=== PATIENT | female | born 1960 | race Caucasian/White ===

== ENCOUNTER 2019-10-13 13:15 | Emergency (ER) | payer OTHER, SELFPAY ==
--- NOTE | ~2019-10-13 | XR_ITS ---
XR sacrum coccyx min 2V 10/13/2019 13:55 Indication: Tailbone pain after recent fall Procedure: 3 views sacrum/coccyx Comparison: No prior studies for comparison. Findings: There is cortical irregularity involving the coccyx best seen on lateral view. There is deg enerative spondylosis at L5-S1. Impression: 1: Cortical irregularity of the coccyx seen on lateral view, consistent with age-indeterminate fractu re. Reviewed, dictated and finalized at location A. Impression: 1: Cortical irregularity of the coccyx seen on lateral view, consistent with ag e-indeterminate fracture.
[2019-10-13 13:25] VITALS: BP 127/85; PULSE 95; RESP 16; TEMP 37.1; O2SAT 99
--- NOTE | 2019-10-13 13:44 | ED.BACK ---
HPI - Back Pain/Injury General Chief Complaint: Back Pain/Injury Stated Complaint: injury Time Seen by Provider: 10/13/19 13:44 Source: patient and RN notes reviewed History of Present Illness HPI Narrative: Patient is a 59-year-old female who presents the urgent care with complaints of back pain after a fall 2 days ago. Patient states that she fell backwards landing on her butt. Patient states that she has not used anything [id number] for her pain. States it is difficult to walk, sit, stand. Denies of any other injuries from the fall. No other acute complaints. No acute distress noted. Patient read the plan of care. Related Data Home Medications Medication Instructions Recorded Confirmed duloxetine mg PO 10/13/19 simvastatin mg 10/13/19 warfarin 10/13/19 Allergies Allergy/AdvReac Type Severity Reaction Status Date / Time PCN Allergy Unknown Unknown Uncoded 10/13/19 13:37 Review of Systems Review of Systems: Narrative: CONSTITUTIONAL: Denies fever, chills, or sweats. EYES: Denies visual changes, redness, or discharge. ENT: Denies rhinorrhea, congestion, sore throat, or otalgia. CARDIOVASCULAR: Denies chest pain, palpitations, or edema. RESPIRATORY: Denies cough or dyspnea. GASTROINTESTINAL: Denies abdominal pain, nausea, vomiting, or diarrhea. GENITOURINARY: Denies dysuria or hematuria. SKIN: Denies rash or itching. MUSCULOSKELETAL: Reports of buttock/tailbone pain NEUROLOGIC: Denies headache, numbness, or weakness. All other systems reviewed are negative, except as documented in HPI. PMFSH Comments At the time of my signature, I reviewed and agree with the nursing past medical, surgical, social, and family history. There is no relevant family history pertinent to the patient complaint. Exam Narrative: Exam Narrative: GENERAL: This is a well-nourished, well-developed patient, in no apparent distress. HEAD: normocephalic, atraumatic. EYES: PERRL. Sclera clear/white. Vision is grossly intact. EARS: External ears normal NOSE: External nose normal with no obvious nasal discharge, nares without redness, no rhinorrhea. THROAT: Mucous membranes moist. NECK: Neck supple SKIN: warm, intact with no suspicious lesions or rash, good texture and turgor. NEURO: awake, alert, and oriented to person, place and time. There were no obvious focal neurologic abnormalities. EXTREMITIES: No clubbing, cyanosis, or edema. BACK: Moderate to mild tenderness to the coccyx region without any crepitus, edema, ecchymosis Course Vital Signs Vital signs: Vital Signs Temperature 98.8 F 10/13/19 13:25 Pulse Rate 95 10/13/19 13:25 Respiratory Rate 16 10/13/19 13:25 Blood Pressure 127/85 10/13/19 13:25 Pulse Oximetry 99 10/13/19 13:25 Temperature 98.8 F 10/13/19 13:25 Pulse Rate 95 10/13/19 13:25 Respiratory Rate 16 10/13/19 13:25 Blood Pressure 127/85 10/13/19 13:25 Pulse Oximetry 99 10/13/19 13:25 Reviewed MDM - Back Pain/Injury MDM Narrative Medical decision making narrative: Reviewed x-ray results with the patient. She is aware that there is irregularity of the coccyx on the x-ray. Radiologist's reading the x-ray is age indeterminant . However, due to recent fall it is likely that the fracture is new. Advised the patient to use a blowup ring to sit on for comfort and to remove pressure from the coccyx. May use an inflatable swim donut ring. Use tramadol as needed for pain. Try to avoid excessive walking, stairs, bending at the waist, lifting. Follow-up with your PCP within 2 to 5 days if her worsening symptoms or failure to improve. Differential Diagnosis Differential diagnosis: Likely lumbar radiculopathy, sciatica and strain of lumbar region Imaging Data Radiologist's impression: [facility] [address] [place] [address] XRay Report Signed Patient: Kaitlynn Pinedo : 1960#: [id number] Age/Sex: 59 / FAcct:[id number] Loc: E
== END 2019-10-13 14:23 | disposition home or self-care (01) ==
PROVIDERS: Emergency Provider Nurse Practitioner Family
DX: S32.2XXA Fracture of coccyx, initial encounter for closed fracture (principal); W19.XXXA Unspecified fall, initial encounter; E78.00 Pure hypercholesterolemia, unspecified
CPT/HCPCS: 72220; 99213; G0463

== ENCOUNTER 2019-11-14 12:12 | Outpatient (CLI) | payer OTHER, SELFPAY ==
--- NOTE | ~2019-11-14 | DEXA_ITS ---
Bone Density Report Name: Kaitlynn Pinedo Age: 59 Sex: Female Ethnicity: White Date of : 1960 Indication: osteopenia; prior fracture; hysterectomy; postmenopausal Referring Provider: MELONY AMIN Study: Bone densitometry was performed. Exam Date: November 14, 2019 Accession number: [id number] Bone Density: Region BMD T-score Z-score Classification AP Spine (L1-L4) 0.825 -2.0 -0.6 Osteopenia Femoral Neck (Left) 0.589 -2.3 -1.1 Osteopenia Total Hip (Left) 0.789 -1.3 -0.3 Osteopenia Femoral Neck (Right) 0.572 -2.5 -1.2 Osteoporosis Total Hip (Right) 0.770 -1.4 -0.5 Osteopenia Total Hip Mean 0.780 -1.4 -0.4 Osteopenia World Health Organization criteria for BMD impression classify patients as: Normal (T-score at or above -1.0), Osteopenia (T-score between -1.0 and -2.5), or Osteoporosis (T-score at or below -2.5). 10-year Fracture Risk: FRAX not reported because: Some T-score for Spine Total or Hip Total or Femoral Neck at or below -2.5 Prior hip or vertebral fracture Previous Exams: Region Exam Age BMD T-score BMD Change BMD Change Date g/cm2 vs Baseline vs Previous AP Spine(L1-L4) 11/14/2019 59 0.825 -2.0 -0.001 -0.001 04/13/2018 58 0.827 -2.0 Total Hip(Left) 11/14/2019 59 0.789 -1.3 0.012 0.012 04/13/2018 58 0.777 -1.4 Total Hip(Right) 11/14/2019 59 0.770 -1.4 0.018 0.018 04/13/2018 58 0.752 -1.6 *Denotes significance at 95% confidence level, LSC for AP Spine = 0.022 g/cm2, LSC for Total Hip = 0.027 g/cm2 Clinical Information Provided by Patient: Have had a previous hip or vertebral fracture Has had a low trauma fracture Smokes Has used the following medications: Vitamin D, Calcium, cumidan Has the following medical conditions: Hysterectomy Patient maximum height was 62.5 Menopause Age: 27 Drinks caffeinated beverages Onset of menses at age 16 Number of children 2 Impression: The patient has established osteoporosis, based on the Right Femoral Neck T-score and the existence of a prior fracture. The patient has risk factors, including: smoking, previous fracture. No significant bone loss was observed. Discussion: HIGH RISK OF FRACTURE. BONE DENSITY IS UNDESIRABLY LOW AT ONE OR MORE SKELETAL SITES, CONSISTENT WITH POSTMENOPAUSAL OSTEOPOROSIS. This patient's lowest T-score, in a patient who has previously fractured, meets the World Health Organization's (WHO) criteria for s
== END 2019-11-14 12:13 ==
PROVIDERS: PCP Internal Medicine; Visit Provider Orthopaedic Surgery
DX: M25.551 Pain in right hip (principal); M25.552 Pain in left hip; M85.89 Other specified disorders of bone density and structure, multiple sites; M81.0 Age-related osteoporosis without current pathological fracture
CPT/HCPCS: 77080

== ENCOUNTER 2020-01-02 14:47 | Outpatient (CLI) | payer OTHER, SELFPAY ==
--- NOTE | ~2020-01-02 | XR_ITS ---
XR finger 3rd RT min 2V DATE: 01/02/2020 15:17 INDICATION: Nodule of finger. Inflammatory arthritis. TECHNIQUE: 4 views COMPARISON: 01/05/2018 right hand FINDINGS: No fracture or dislocation, periosteal reaction or bone destruction. No radiopaque soft tis joellen foreign body or subcutaneous emphysema. No erosive change is identified. There is mild narrowing at the interphalangeal joints. IMPRESSION: Mild osteoarthritis at the interphalangeal joints Reviewed, dictated and finalized at location A.
== END 2020-01-02 14:48 | disposition home or self-care (01) ==
PROVIDERS: PCP Internal Medicine
DX: M19.041 Primary osteoarthritis, right hand (principal); R22.31 Localized swelling, mass and lump, right upper limb
CPT/HCPCS: 73140

== ENCOUNTER 2020-11-05 13:43 | Emergency (ER) | payer OTHER, SELFPAY ==
--- NOTE | ~2020-11-05 | XR_ITS ---
EXAMINATION: XR foot LT min 3V DATE: 11/05/2020 15:25 INDICATION: Left foot pain TECHNIQUE: Dorsoplantar, two oblique and lateral views of the left foot were obtained. COMPARISON: 12/21/2006 FINDINGS: 40 degrees hallux valgus. Age-indeterminate dorsal subluxation, likely dislocation at the second meta tarsophalangeal joint which is new since the prior study. No fractures. Mild polyarticular osteoarthr itis involving the majority of the moderate-sized plantar calcaneal spur. Mild soft tissue swelling o edgard the dorsum of the mid and hindfoot. Tarsal metatarsal, metatarsophalangeal and interphalangeal karen ints. IMPRESSION: 1. Age-indeterminate dorsal subluxation, likely dislocation at the second metatarsophalangeal joint. 2. Moderate hallux valgus. 3. Mild polyarticular osteoarthritis in the fore and midfoot. Reviewed, dictated and finalized at location A. IMPRESSION: 1. Age-indeterminate dorsal subluxation, likely dislocation at the second metat arsophalangeal joint. 2. Moderate hallux valgus. 3. Mild polyarticular osteoarthritis in the fore and midfoot.
[2020-11-05 13:53] VITALS: BP 131/71; PULSE 102; RESP 16; TEMP 36.9; O2SAT 100
--- NOTE | 2020-11-05 14:26 | ED.LOWEXIN ---
HPI - Extremity Injury (Lower) General Chief Complaint: Extremity Injury, Lower <Stacy Sharma CNP - Last Filed: 11/05/20 17:42> Stated Complaint: Left Foot Pain <Stacy Sharma CNP - Last Filed: 11/05/20 17:42> Time Seen by Provider: 11/05/20 14:26 <Stacy Sharma CNP - Last Filed: 11/05/20 17:42> Source: patient <Stacy Sharma CNP - Last Filed: 11/05/20 17:42> Mode of arrival: ambulatory <Stacy Sharma CNP - Last Filed: 11/05/20 17:42> Limitations: no limitations <Stacy Sharma CNP - Last Filed: 11/05/20 17:42> History of Present Illness HPI Narrative: Kaitlynn Pinedo is a 60 yo female with osteoporosis, high cholesterol, depression anxiety, chronic anticoagulation, antiphospholipid syndrome, who started walking at a client's house today and stated that her she started to have sharp pain in the top of her left foot pain; no twisting or fall, has had fracture in her other foot and this mechanism without any trauma. States her pain is 7 out of 10 <Stacy Sharma CNP - Last Filed: 11/05/20 17:42> Related Data Home Medications: Home Medications Medication Instructions Recorded Confirmed duloxetine 60 mg PO DAILY 10/13/19 11/05/20 simvastatin 20 mg PO DAILY 10/13/19 11/05/20 warfarin 1 mg PO DAILY 11/05/20 11/05/20 warfarin 8 mg PO DAILY 11/05/20 11/05/20 <Stacy Sharma CNP - Last Filed: 11/05/20 17:42> Allergies/Adverse Reactions: Allergies Allergy/AdvReac Type Severity Reaction Status Date / Time PCN Allergy Unknown Unknown Uncoded 11/05/20 14:36 <Stacy Sharma CNP - Last Filed: 11/05/20 17:42> Review of Systems Review of Systems: Narrative: CONSTITUTIONAL: Denies fever, chills, sweats. EYES: Denies visual changes, redness, discharge. ENT: Denies rhinorrhea, congestion, sore throat, otalgia. CARDIOVASCULAR: Denies chest pain, palpitations, edema. RESPIRATORY: Denies dyspnea, wheezing, cough GASTROINTESTINAL: Denies abdominal pain, nausea, vomiting, diarrhea. GENITOURINARY: Denies dysuria, hematuria, abnormal discharge SKIN: Denies rash or itching. NEUROLOGIC: Denies numbness, or focal weakness. PSYCHIATRIC: Denies anxiety or depression. Left foot pain dorsum lateral side <Stacy Sharma CNP - Last Filed: 11/05/20 17:42> PMFSH Past Medical History Medical History: Medical History Antiphospholipid syndrome Anxiety Depression High cholesterol <Stacy Sharma CNP - Last Filed: 11/05/20 17:42> Family History Family History: Family History (Updated 11/05/20 @ 14:38 by Stacy Sharma CNP) Other Diabetes mellitus <Stacy Sharma CNP - Last Filed: 11/05/20 17:42> Social History Social History: Social History (Updated 11/05/20 @ 14:38 by Stacy Sharma CNP) Smoking packs per day: 0.5 Smoking cigarettes per day: 10.0 Smoking status: Current every day smoker Alcohol intake: never <Stacy Sharma CNP - Last Filed: 11/05/20 17:42> Comments At time of signature, I agree with nursing past medical, surgical, social and family history. There is no relevant family history pertinent to the presenting complaint. <Stacy Sharma CNP - Last Filed: 11/05/20 17:42> Exam Narrative: Exam Narrative: GENERAL: This is a well-nourished, well-developed patient, in moderate distress. HEAD: normocephalic, atraumatic. EYES: Sclera clear/white. Vision is grossly intact. EARS: External ears normal Hearing grossly intact. NOSE: External nose normal. THROAT: Mucous membranes moist, NECK: Neck supple, non-tender CARDIOVASCULAR: Regular rate and rhythm without murmurs, gallops, or rubs. RESPIRATORY: Clear to auscultation. Breath sounds equal bilaterally. No wheezes, rales, or rhonchi. GASTROINTESTINAL: Abdomen soft, SKIN: warm, intact with no suspicious lesions or rash, good texture and turgor. NEURO: awake, alert, and oriented to person, place and
--- NOTE | 2020-11-05 14:50 | PC.NURSE ---
Pt being sent to [facility] for x ray and final disposition. Pt discharged from facility via wheelchair with tech. No issues noted.
--- NOTE | 2020-11-05 17:51 | PC.NURSE ---
1510 Patient came to this facility for xray of foot as ordered. After xray patient was escorted in to Room 3 to await xray reading.
== END 2020-11-05 16:20 | disposition home or self-care (01) ==
PROVIDERS: Emergency Provider Nurse Practitioner Family; PCP Internal Medicine
DX: M19.072 Primary osteoarthritis, left ankle and foot (principal); E78.00 Pure hypercholesterolemia, unspecified; M81.0 Age-related osteoporosis without current pathological fracture; Z79.01 Long term (current) use of anticoagulants; D68.61 Antiphospholipid syndrome
CPT/HCPCS: 73630; 99213; G0463

== ENCOUNTER 2021-01-06 15:16 | Emergency (ER) | payer OTHER, SELFPAY ==
--- NOTE | ~2021-01-06 | XR_ITS ---
EXAMINATION: XR wrist RT min 3V INDICATION: Right wrist pain TECHNIQUE: Four views of the right wrist are obtained. COMPARISON: 01/05/2018 FINDINGS: There is a subtle lucency in the lateral articular surface of the radius. Moderate osteoart hritis is noted at the triscaphe and scapholunate joints. There is soft tissue swelling of the wrist. IMPRESSION: 1. Possible nondisplaced intra-articular fracture of the distal radius. Reviewed, dictated and finalized at location A.
[2021-01-06 15:30] VITALS: BP 145/82; PULSE 98; RESP 16; TEMP 36.7; O2SAT 97
--- NOTE | 2021-01-06 16:06 | ED.UPPEXIN ---
HPI - Extremity Injury (Upper) General Chief Complaint: Extremity Injury, Upper Stated Complaint: RIGHT WRIST PAIN FELL Time Seen by Provider: 01/06/21 15:45 Source: patient and RN notes reviewed Mode of arrival: ambulatory Limitations: no limitations History of Present Illness HPI narrative: Patient presents today complaining of right wrist pain. At 1330 this afternoon patient fell backwards onto some concrete onto an outstretched hand. Pain radiates to the elbow. Currently rates pain 8/10 and has been using ice. She has not tried any zwbw-sha-[id number] medication for symptoms prior to arrival. History of osteoporosis. Denies numbness or tingling. MD complaint: injury to: right and wrist Related Data Home Medications Medication Instructions Recorded Confirmed duloxetine 60 mg PO DAILY 10/13/19 11/05/20 warfarin 1 mg PO DAILY 11/05/20 11/05/20 warfarin 8 mg PO DAILY 11/05/20 11/05/20 Zinc 01/06/21 alendronate mg PO 01/06/21 ascorbate calcium (vitamin C) 01/06/21 atorvastatin 01/06/21 cholecalciferol (vitamin D3) 1,250 mcg PO WEEKLY 01/06/21 01/06/21 flaxseed ea PO 01/06/21 folic acid-vit B6-vit B12 [Folbic] tablet 01/06/21 magnesium 01/06/21 omega 8-tzk-fci-fish oil [Fish Oil] cap PO 01/06/21 pregabalin [Lyrica] 01/06/21 Allergies Allergy/AdvReac Type Severity Reaction Status Date / Time PCN Allergy Unknown Unknown Uncoded 11/05/20 14:36 Review of Systems Review of Systems: CONSTITUTIONAL: Denies body aches, fever, chills, or sweats. EYES: Denies visual changes, redness, or discharge. ENT: Denies rhinorrhea, congestion, sore throat, or otalgia. CARDIOVASCULAR: Denies chest pain, palpitations, or edema. RESPIRATORY: Denies cough or dyspnea. GASTROINTESTINAL: Denies abdominal pain, nausea, vomiting, or diarrhea. GENITOURINARY: Denies dysuria or hematuria. SKIN: Denies rash, itching, or wounds. MUSCULOSKELETAL: Denies back pain, or myalgia.+ Right wrist injury NEUROLOGIC: Denies headache, numbness, tingling, or weakness. PSYCH: Denies depression or anxiety. [facility] Past Medical History Medical History (Updated 01/07/21 @ 00:00 by Mikaela Mullins) Antiphospholipid syndrome Anxiety Depression High cholesterol Osteoporosis Family History Family History Other Diabetes mellitus Social History Social History Smoking packs per day: 0.5 Smoking cigarettes per day: 10.0 Smoking status: Current every day smoker Alcohol intake: never Comments At time of signature, I have reviewed and agree with nursing past medical, surgical, social and family history unless otherwise noted. Please see nursing chart for further information. There is no relevant family history pertinent to the presenting complaint Exam Narrative: GENERAL: Well-appearing, well-nourished, and in no acute distress. HEAD: Normocephalic, atraumatic. EYES: EOMI. No redness or drainage. Conjunctivae normal. ENT: Mucous membranes pink and moist. NECK: Normal AROM. CHEST: No respiratory distress. EXTREMITIES: Right wrist: Tenderness to the distal radius. Decreased range of motion due to pain. No deformity noted. Distal sensation intact. Capillary refill normal. Radial pulse normal. SKIN: Warm, dry, no rash. Capillary refill normal. Normal skin turgor. NEURO: No focal deficits. Alert and oriented x3. Gait steady. PSYCH: Normal affect. No signs of depression or anxiety. Course Vital Signs Vital signs: Vital Signs Temperature 98.0 F 01/06/21 15:30 Pulse Rate 98 01/06/21 15:30 Respiratory Rate 16 01/06/21 15:30 Blood Pressure 145/82 H 01/06/21 15:30 Pulse Oximetry 97 01/06/21 15:30 Temperature 98.0 F 01/06/21 15:30 Pulse Rate 98 01/06/21 15:30 Respiratory Rate 16 01/06/21 15:30 Blood Pressure 145/82 H 01/06/21 15:30 Pulse Oximetry 97 01/06/21 15:30 Revi
== END 2021-01-06 16:30 | disposition home or self-care (01) ==
PROVIDERS: Emergency Provider Nurse Practitioner; PCP Internal Medicine
DX: S52.501A Unspecified fracture of the lower end of right radius, initial encounter for closed fracture (principal); F32.9 Major depressive disorder, single episode, unspecified; F41.9 Anxiety disorder, unspecified; F17.210 Nicotine dependence, cigarettes, uncomplicated; Z79.82 Long term (current) use of aspirin; Z79.01 Long term (current) use of anticoagulants; W18.30XA Fall on same level, unspecified, initial encounter
CPT/HCPCS: 73110; 99214; A4565; G0463

== ENCOUNTER 2021-05-01 23:35 | Observation (INO) | payer OTHER, SELFPAY ==
--- NOTE | ~2021-05-01 | XR_ITS ---
XR chest 1V portable 05/02/2021 02:21 Indication: Hemoptysis. Procedure: AP portable chest Comparison: No prior studies for comparison. Findings: Heart size normal. There is emphysema. There are ill-defined interstitial infiltrates of th e mid and lower lungs which may represent mild edema or pneumonia. No pneumothorax. No pleural effusi on. Impression: 1: No infiltrates of the mid and lower lungs which may represent mild edema or pneumonia. Reviewed, dictated and finalized at location A. RT FIRER Impression: 1: No infiltrates of the mid and lower lungs which may represent mild edema or pneumonia.
--- NOTE | ~2021-05-01 | CT_ITS ---
EXAMINATION: CTA chest PE protocol DATE: 05/02/2021 08:42 BUSINESS PROCESS LEAD INDICATION: Hemoptysis. Antiphospholipid antibodies. TECHNIQUE: Computed tomographic angiography (CTA) of the chest was performed with 100 mL Omnipaque-35 0 intravenous contrast. The dose-length product was 259.86 mGy-cm. Maximum intensity projection 3D-re constructions of the aorta and other arteries were constructed by the technologist on a separate work station. Automated exposure control and iterative reconstruction technique were employed. COMPARISON: No prior studies for comparison. . FINDINGS: Study technically adequate without evidence for pulmonary embolism. No significant pleural or pericardial effusion. Moderate size hiatal hernia. The upper abdomen is unremarkable. No thoracic lymphadenopathy. Severe emphysema. There are patchy groundglass opacities in the right upper and lowe r lobes. No endobronchial lesions. No pneumothorax. No suspicious pulmonary nodules or masses. No acu te osseous abnormality. IMPRESSION: 1. No evidence for pulmonary embolism. 2: Patchy groundglass opacities of the right upper and lower lobes which may represent atelectasis o r pneumonia. 3: Emphysema. Reviewed, dictated and finalized at location A. NESS PROCESS LEAD IMPRESSION: 1. No evidence for pulmonary embolism. 2: Patchy groundglass opacities of the right upper and lower lobes which may r epresent atelectasis or pneumonia. 3: Emphysema.
[2021-05-01 23:38] VITALS: BP 151/80; PULSE 94; RESP 18; TEMP 36.3; O2SAT 100
[2021-05-02] VITALS (14 sets, daily range): BP systolic 115–138; BP diastolic 55–77; PULSE 84–100; RESP 14–20; TEMP 36.2–36.8; O2SAT 94–100; BMI 26.2; BMI 22.1
--- NOTE | 2021-05-02 02:04 | ECG_ITS ---
Measurements Intervals [place] Rate: 87 P: 24 [place]: 171 QRS: 41 QRSD: 81 T: 31 QT: 346 QTc: 418 Interpretive Statements SINUS RHYTHM NORMAL ECG Electronically Signed On 05-02-2021 6:13:24 SECONDS INSPECTOR by Osmani Beckman D.O.
[2021-05-02 02:33] LABS: Basophils Absolute Auto 0.1 K/mm3 (0.0-0.1); Basophils Percent Auto 0.7 % (0.2-1.2); Eosinophils Absolute Auto 0.3 K/mm3 (0-0.3); Eosinophils Percent Auto 2.2 % (0-4.4); Hematocrit 43.8 % (37.0-47.0); Hemoglobin 14.4 g/dL (12.0-15.0); Immature Granulocyte Absolute 0.03 K/mm3 (0.00-0.031); Immature Granulocyte Percent A 0.2 % (0-0.5); Lymphocytes Absolute Auto 4.26 K/mm3 (0.9-3.2); Lymphocytes Percent Auto 33.4 % (18.3-44.2); Mean Corpuscular HGB Conc 32.9 g/dl (32-36); Mean Corpuscular Hemoglobin 29.7 pg (26-34); Mean Corpuscular Volume 90.3 fl (80-100); Mean Platelet Volume 9.1 fl (7.4-10.4); Monocytes Absolute Auto 0.7 K/mm3 (0.1-0.6); Monocytes Percent Auto 5.6 % (2.6-8.5); Neutrophils Absolute Auto 7.4 K/mm3 (1.3-6.7); Neutrophils Percent Auto 57.9 % (45.5-73.1); Platelet Count Result 325 k/mm3 (150-375); Red Blood Count 4.85 M/mm3 (4.2-5.4); Red Cell Distribution Width 13.6 % (11.5-14.5); White Blood Count 12.8 K/mm3 (4.5-10.0)
[2021-05-02 02:45] LABS: Lactic Acid Reflex 0.7 mmol/L (0.7-2.1)
[2021-05-02 02:45] LABS: Alanine Aminotransferase 18 U/L (4-35); Albumin Level 4.1 g/dL (3.5-5.1); Alkaline Phosphatase 70 U/L (38-126); Anion Gap 8 mmol/L (8-16); Aspartate Amino Transferase 25 U/L (14-36); Bilirubin,Total 0.3 mg/dL (0.2-1.3); Blood Urea Nitrogen 22 mg/dL (7-17); Calcium 9.1 mg/dL (8.4-10.2); Carbon Dioxide 27 mmol/L (22-30); Chloride 105 mmol/L (98-107); Estimated CRCL calculation 75 ml/min; Estimated Glomerular Filt Rate > 60; Glucose 112 mg/dL (65-110); Sodium 140 mmol/L (137-145)
[2021-05-02 02:47] LABS: Partial Thromboplastin Time 71.6 SECONDS (22.3-36.8)
[2021-05-02 02:52] LABS: INR 2.2; Prothrombin Time 23.7 Seconds (11.1-14.7)
--- NOTE | 2021-05-02 03:44 | ED.GENADULT ---
HPI - General Adult General Chief complaint: Upper Respiratory Infection Stated complaint: cough COVID + 04/16 Time Seen by Provider: 05/02/21 03:11 History of Present Illness HPI narrative: Patient is 61-year-old female presents the emergency department with chief complaint of hemoptysis. Patient reports that she was Covid positive on 16 April and is also on oral Coumadin. The patient states that her INR has been slightly elevated recently with her last one being in the four patient states that she has been continually coughing and is started coughing up blood-tinged sputum. Patient states that she has no shortness of breath does have a bit of tightness feeling in her chest feels as though she needs to cough something up. Patient reports symptoms or not improved by anything or they worsened by anything. Related Data Home Medications Medication Instructions Recorded Confirmed duloxetine 60 mg PO DAILY 10/13/19 11/05/20 warfarin 1 mg PO DAILY 11/05/20 11/05/20 warfarin 8 mg PO DAILY 11/05/20 11/05/20 Zinc 01/06/21 alendronate mg PO 01/06/21 ascorbate calcium (vitamin C) 01/06/21 atorvastatin 01/06/21 cholecalciferol (vitamin D3) 1,250 mcg PO WEEKLY 01/06/21 01/06/21 flaxseed ea PO 01/06/21 folic acid-vit B6-vit B12 [Folbic] tablet 01/06/21 magnesium 01/06/21 omega 9-voe-yid-fish oil [Fish Oil] cap PO 01/06/21 pregabalin [Lyrica] 01/06/21 Allergies Allergy/AdvReac Type Severity Reaction Status Date / Time PCN Allergy Unknown Hypotension Uncoded 05/01/21 23:42 Review of Systems Review of Systems: A 10 system review of systems was completed on the patient and is negative except for what is stated in the HPI. Nursing and ancillary documentation was reviewed. [facility] Past Medical History Medical History Antiphospholipid syndrome Anxiety Depression High cholesterol Osteoporosis Family History Family History Other Diabetes mellitus Social History Social History Smoking packs per day: 0.5 Smoking cigarettes per day: 10.0 Smoking status: Current every day smoker Alcohol intake: never Exam Narrative: GENERAL: Well-appearing, well-nourished, and in no acute distress. HEAD: Normocephalic, atraumatic. EYES: PERRLA and EOMI. ENT: Nares clear, no rhinorrhea or epistaxis. Mucous membranes moist. NECK: Supple. CHEST: Clear to auscultation. No respiratory distress. HEART: Regular rate and rhythm. No murmur heard. Normal peripheral pulses. ABDOMEN: Soft, nontender, nondistended, normal active bowel sounds. EXTREMITIES: Normal range of motion. No edema. SKIN: Warm, dry, no rash. NEURO: No focal deficits. Alert and oriented x3. PSYCH: Normal mood and affect. Course Vital Signs Vital signs: Vital Signs Temperature 36.3 C L 05/01/21 23:38 Pulse Rate 94 05/01/21 23:38 Respiratory Rate 18 05/01/21 23:38 Blood Pressure 151/80 H 05/01/21 23:38 Pulse Oximetry 100 05/01/21 23:38 Temperature 36.3 C L 05/01/21 23:38 Pulse Rate 89 05/02/21 02:54 Respiratory Rate 18 05/02/21 02:54 Blood Pressure 138/77 05/02/21 02:54 Pulse Oximetry 96 05/02/21 02:54 Medical Decision Making Vital Signs Vital Signs: Vital Signs Temperature 36.3 C L 05/01/21 23:38 Pulse Rate 94 05/01/21 23:38 Respiratory Rate 18 05/01/21 23:38 Blood Pressure 151/80 H 05/01/21 23:38 Pulse Oximetry 100 05/01/21 23:38 Temperature 36.3 C L 05/01/21 23:38 Pulse Rate 89 05/02/21 02:54 Respiratory Rate 18 05/02/21 02:54 Blood Pressure 138/77 05/02/21 02:54 Pulse Oximetry 96 05/02/21 02:54 Lab Data Result diagrams: 05/02/21 02:14 05/02/21 02:14 Labs: Lab Results 05/02/21 05/02/21 05/02/21 Range/Units 02:14 02:14 02:14 WBC 12.8 H (4.5
[2021-05-02 04:21] LABS: NT Pro B Type Natriuretic Pept 63 pg/mL (5-100)
[2021-05-02 05:03] LABS: Troponin I < 0.012 ng/mL (0.000-0.034)
[2021-05-02 05:35] LABS: SARS-CoV-2 RNA PCR Negative
--- NOTE | 2021-05-02 06:56 | ADMGEN ---
This patient, Kaitlynn Pinedo, was admitted to [facility] Surg Room 313-01. Patient/family oriented to hospital policies and general routines including ID bracelet, bed and alarms, visiting hours, pain management, procedures, bathroom and other care routines, personal items, smoking policy, room service/diet, and visiting hours. Information on how to activate the Rapid Response Team has been discussed. Patient/Family are encouraged to report perceived risks to care and to ask questions if they do not understand what they are told or what they should do.
[2021-05-02 07:48] LABS: Hematocrit 42.8 % (37.0-47.0); Hemoglobin 14.1 g/dL (12.0-15.0)
[2021-05-02] MEDS: IPRATROPIUM BR 0.02% INH SOLN 0.5 MG/2.5 ML VIAL INHALATION ×2 (08:31→19:16)
[2021-05-02] MEDS: ALBUTEROL SULFATE NEB 2.5 MG/0.5 ML INH 5 MG INHALATION ×2 (08:31→19:15)
--- NOTE | 2021-05-02 09:00 | PM.IMPN ---
Subjective Date/time seen: 05/02/21 09:00 Review of Systems Constitutional: Constitutional: Denies excessive sweating, Denies headache(s), Denies increased appetite, Denies snoring and Denies weight gain Eyes: Eyes: Denies exophthalmos, Denies diplopia, Denies floaters and Denies loss of peripheral vision ENT: Denies facial pain, Denies headache(s), Denies odynophagia and Denies tinnitus Respiratory: Respiratory: Denies snoring Gastrointestinal: Gastrointestinal: Denies odynophagia Neurologic: Denies headache(s) Endocrine: Endocrine: Denies excessive sweating Exam Narrative: GENERAL: Well-appearing, well-nourished, and in no acute distress. HEAD: Normocephalic, atraumatic. EYES: PERRLA and EOMI. ENT: Nares clear, no rhinorrhea or epistaxis. Mucous membranes moist. NECK: Supple. CHEST: Clear to auscultation. No respiratory distress. HEART: Regular rate and rhythm. No murmur heard. Normal peripheral pulses. ABDOMEN: Soft, nontender, nondistended, normal active bowel sounds. EXTREMITIES: Normal range of motion. No edema. SKIN: Warm, dry, no rash. NEURO: No focal deficits. Alert and oriented x3. PSYCH: Normal mood and affect. Objective Data Vital Signs Vital Signs: Vital Signs - 24 hr 05/01/21 23:38 05/02/21 02:54 05/02/21 04:18 Temperature 36.3 C L Pulse Rate 94 89 84 Respiratory Rate 18 18 16 Blood Pressure 151/80 H 138/77 Pulse Oximetry 100 96 97 05/02/21 05:05 05/02/21 06:20 05/02/21 06:30 Temperature 36.2 C L Pulse Rate 91 92 92 Respiratory Rate 20 19 18 Blood Pressure 117/55 L 122/59 L 118/64 Pulse Oximetry 94 95 98 05/02/21 08:00 05/02/21 08:32 05/02/21 08:33 Temperature 36.3 C L Pulse Rate 100 98 Respiratory Rate 16 Blood Pressure 120/67 Pulse Oximetry 100 96 05/02/21 08:41 Temperature Pulse Rate 96 Respiratory Rate 18 Blood Pressure Pulse Oximetry Intake/Output Intake/Output: Intake & Output 04/29/21 04/30/21 05/01/21 05/02/21 23:59 23:59 23:59 23:59 Intake Total 50 Balance 50 Meds/Results Medications: Active Medications Generic Name Dose Route Start Last Admin Trade Name Darwin PRN Reason Stop Dose Admin Albuterol 5 mg 05/02/21 08:00 05/02/21 08:31 Albuterol Sulfate Neb 2.5 Mg/0.5 Ml Inh INHALATION 5 mg Q6HRT IRINA Administration Ceftriaxone Sodium/Dextrose 1 gm in 50 mls @ 100 mls/hr 05/03/21 06:00 Rocephin 1 Gm/D5w 50 Ml IVPB Q24H IRINA Azithromycin 500 mg in 250 mls @ 250 mls/hr 05/03/21 06:00 Zithromax IVPB Q24H IRINA Ipratropium [place] 0.5 mg 05/02/21 08:00 05/02/21 08:31 Ipratropium Br 0.02% Inh Soln 0.5 Mg/2.5 Ml Vial INHALATION 0.5 mg Q6HRT IRINA Administration Miscellaneous Information 0 each 05/02/21 00:01 Allergies - Please Enter Up To Date Allergies XX 06/01/21 00:00 CLARIFY IRINA Radiology Results: ITS Impressions Chest CTA 05/02/21 08:42 IMPRESSION: 1. No evidence for pulmonary embolism. 2: Patchy groundglass opacities of the right upper and lower lobes which may represent atelectasis or pneumonia. 3: Emphysema. Labs Labs: Laboratory Results - last 24 hr 05/02/21 05/02/21 05/02/21 02:14 02:14 02:14 WBC 12.8 H RBC 4.85 Hgb 14.4 Hct 43.8 MCV 90.3 MCH 29.7 MCHC 32.9 RDW 13.6 Plt Count 325 MPV 9.1 Immature Gran % (Auto) 0.2 Neut % (Auto) 57.9 Lymph % (Auto) 33.4 [place] % (Auto) 5.6 Eos % (Auto) 2.2 Baso % (Auto) 0.7 Lymph # (Auto) 4.26 H [place] # (Auto) 0.7 H Eos # (Auto) 0.3 Baso # (Auto) 0.1 Abs Immat Gran (auto) 0.03 Absolute Neuts (auto) 7.4 H Absolute Nucleated RBC 0.0 Nucleated RBC % 0.0 PT 23.7 H INR 2.2 APTT 71.6 H Sodium 140 Potassium 4.0 Chloride 105 Carbon Dioxide 27 Anion Gap 8 BUN 22 H Creatinine 0.60 L Estim Creat Clear Calc 75 Estimated GFR > 60 Glucose 112 H Lactic Acid Calcium 9.1 Total Bilirubi
--- NOTE | 2021-05-02 09:12 | PM.IMHP ---
H&P: HPI History of Present Illness Date/Time: 05/02/21 09:12 Kaitlynn was admitted with a cough that started around , when she tested positive for COVID on . Her also came down with COVID at that time, shortly after her. Patient stated that she and her 's COVID vaccine was done around June 2020, but that she had not had the Booster yet. They felt that they had pretty much recovered from it, but her cough persisted. Then yesterday her cough became bloody in nature. She continues to have bloody sputum today with her cough, but in smaller amounts than yesterday. She was admitted for Upper Respiratory Infection and hemoptysis. Kaitlynn takes Warfarin daily. The patient states that her INR has been slightly elevated recently with her last one being in the 4's. She has been continually coughing and is started coughing up blood-tinged sputum. Patient states that she has no shortness of breath, but does have a bit of tightness feeling in her chest feels as though she needs to cough something up. Patient reports symptoms have not improved by anything nor are they worsened by anything. Will treat patient to reduce coughing, improve respiratory/ventilation, and monitor for elevated INR. Plan to restart Coumadin dosing tomorrow, if hemoptysis has resolved then. Blood cultures pending, ordered sputum cx. Medical Records Technician consult placed for tomorrow. Chief Complaint: Hemoptysis Review of Systems Review of Systems: All systems reviewed & are unremarkable except as noted in HPI and below Constitutional: Constitutional: Reports as per HPI, Denies excessive sweating, Reports fatigue, Denies headache(s), Denies increased appetite, Reports lethargy, Denies snoring, Reports weakness and Denies weight gain Eyes: Eyes: Reports as per HPI, Denies exophthalmos, Denies diplopia, Denies floaters and Denies loss of peripheral vision ENT: Reports as per HPI, Denies facial pain, Denies headache(s), Reports nasal congestion, Denies odynophagia and Denies tinnitus Cardiovascular: Cardiovascular: Reports as per HPI, Denies pedal edema, Denies leg edema and Denies lightheadedness Respiratory: Respiratory: Reports as per HPI, Reports cough, Reports hemoptysis, Reports dyspnea on exertion and Denies snoring Gastrointestinal: Gastrointestinal: Reports as per HPI, Denies melena, Denies hematochezia, Denies constipation, Denies diarrhea and Denies odynophagia Genitourinary: Genitourinary: Reports as per HPI and Denies hematuria Musculoskeletal: Musculoskeletal: Reports as per HPI Integumentary/Breasts: Skin/Breast: Reports as per HPI and Denies unusual bruising Neurologic: Reports as per HPI and Denies headache(s) Psychiatric: Psychiatric: Reports as per HPI, Denies anxiety and Denies confusion Endocrine: Endocrine: Denies excessive sweating PMFSH Past Medical History Medical History Antiphospholipid syndrome Anxiety Depression High cholesterol Osteoporosis Family History Family History Other Diabetes mellitus Social History Social History Smoking packs per day: 1 Smoking cigarettes per day: 20.0 Smoking status: Current every day smoker Alcohol intake: never Substance use: never Spiritual care concerns: No Meds Home Medications and Allergies Home Medications Medication Instructions Recorded Confirmed Type duloxetine 60 mg PO DAILY 10/13/19 05/02/21 History warfarin 8 mg PO DAILY 11/05/20 05/02/21 History atorvastatin 10 mg PO DAILY 01/06/21 05/02/21 History cholecalciferol (vitamin D3) 1,250 mcg PO WEEKLY 01/06/21 05/02/21 History Allergies Allergy/AdvReac Type Severity Reaction Status Date / Time Penicillins Allergy Difficulty Verified 05/02/21 12:07 Breathing Vital Signs Vital Signs - 24 hr 05/01/21 23:38 05/02/21 02:54
[2021-05-02 12:28] LABS: Hematocrit 41.9 % (37.0-47.0); Hemoglobin 13.7 g/dL (12.0-15.0)
[2021-05-02 18:58] LABS: Hematocrit 41.4 % (37.0-47.0); Hemoglobin 13.8 g/dL (12.0-15.0)
[2021-05-02] MEDS: guaiFENesin 12 HR 600 MG TABCR 1200 MG PO (20:58)
[2021-05-02] MEDS: FLUTICASONE PROPIONATE 0.05% NA SPR 16 GM BTL (*BKC) 1 SPRAY NASAL (20:58)
[2021-05-03] VITALS: BP 121/77; PULSE 85; RESP 18; TEMP 36.5; O2SAT 95
[2021-05-03 04:00] VITALS: BP 122/56; PULSE 85; RESP 18; TEMP 36.2; O2SAT 95
[2021-05-03 08:00] VITALS: BP 110/56; PULSE 86; RESP 20; TEMP 36.2; O2SAT 95
[2021-05-03 08:13] LABS: Hematocrit 43.2 % (37.0-47.0); Hemoglobin 14.3 g/dL (12.0-15.0); Mean Corpuscular HGB Conc 33.1 g/dl (32-36); Mean Corpuscular Hemoglobin 29.3 pg (26-34); Mean Corpuscular Volume 88.5 fl (80-100); Platelet Count Result 284 k/mm3 (150-375); Red Blood Count 4.88 M/mm3 (4.2-5.4); Red Cell Distribution Width 13.6 % (11.5-14.5)
[2021-05-03 08:27] LABS: INR 2.3; Prothrombin Time 24.5 Seconds (11.1-14.7)
[2021-05-03 08:30] LABS: Alanine Aminotransferase 17 U/L (4-35); Albumin Level 3.9 g/dL (3.5-5.1); Alkaline Phosphatase 56 U/L (38-126); Anion Gap 9 mmol/L (8-16); Aspartate Amino Transferase 21 U/L (14-36); Bilirubin,Total 0.5 mg/dL (0.2-1.3); Blood Urea Nitrogen 13 mg/dL (7-17); Calcium 8.3 mg/dL (8.4-10.2); Carbon Dioxide 26 mmol/L (22-30); Chloride 106 mmol/L (98-107); Estimated CRCL calculation 78 ml/min; Estimated Glomerular Filt Rate > 60; Glucose 138 mg/dL (65-110); Potassium 3.5 mmol/L (3.4-5.0); Sodium 141 mmol/L (137-145)
[2021-05-03 09:31] VITALS: PULSE 92; RESP 18
[2021-05-03] MEDS: ALBUTEROL SULFATE NEB 2.5 MG/0.5 ML INH 5 MG INHALATION (09:31)
[2021-05-03] MEDS: IPRATROPIUM BR 0.02% INH SOLN 0.5 MG/2.5 ML VIAL INHALATION (09:31)
[2021-05-03] MEDS: FLUTICASONE PROPIONATE 0.05% NA SPR 16 GM BTL (*BKC) 1 SPRAY NASAL (09:58)
[2021-05-03] MEDS: guaiFENesin 12 HR 600 MG TABCR 1200 MG PO (09:58)
[2021-05-03] MEDS: DULoxetine HCL 60 MG CAPSULE.DR PO (09:59)
[2021-05-03] MEDS: ATORVASTATIN 10 MG TABLET PO (09:59)
--- NOTE | 2021-05-03 10:44 | PM.DS ---
DS: Admitting Diagnosis Discharge Date 05/03/2021 Admitting Diagnosis Hemoptysis DS: Discharge Diagnosis Discharge Diagnosis (1) Cough with hemoptysis: Code(s): R04.2 - Hemoptysis Status: Acute Assessment and Plan: CTA chest PE protocol today showed: Moderate size hiatal hernia. Severe emphysema.No evidence for pulmonary embolism.Patchy groundglass opacities of the right upper and lower lobes which may represent atelectasis or pneumonia.Emphysema. ipratropium albuterol azithromycin and Rocephin Mucinex She and her need COVID boosters holding Warfarin daily. reduce and control coughing at this time improve respiratory/ventilation monitor for elevated INR. Plan to restart Coumadin dosing tomorrow, if hemoptysis has resolved then. Blood cultures pending, ordered sputum cx. Circuit Manager consult placed for tomorrow. H/H has been stable.CBC ordered for morning. (2) Emphysema/COPD: Code(s): J43.9 - Emphysema, unspecified Status: Acute Assessment and Plan: CTA chest PE protocol today showed: Moderate size hiatal hernia. Severe emphysema.No evidence for pulmonary embolism.Patchy groundglass opacities of the right upper and lower lobes which may represent atelectasis or pneumonia.Emphysema. ipratropium albuterol azithromycin and Rocephin Mucinex COVID boosters ordered sputum cx. smoking cessation education Home O2 study prior to discharge. treat LINDSEY? F/U with Circuit Manager after discharge. (3) Bleeding on Coumadin: Code(s): R58 - Hemorrhage, not elsewhere classified; T45.515A - Adverse effect of anticoagulants, initial encounter Status: Acute Assessment and Plan: INR 2.2 today held Coumadin today, due to persistent hemoptysis consider restarting tomorrow if hemoptysis resolves. was taking ? 8mg Coumadin daily ? at home - need to verify that dose prior to restart. (4) Leukocytosis (leucocytosis): Code(s): D72.829 - Elevated white blood cell count, unspecified Status: Acute Assessment and Plan: Wbc 12.8 at admission no fevers today recheck in morning related to respiratory status likely /COPD/hemopytopsis DS: Summary Hospital Course Reason for hospitalization: Kaitlynn was admitted with a cough that started around , when she tested positive for COVID on . Her also came down with COVID at that time, shortly after her. Patient stated that she and her 's COVID vaccine was done around June 2020, but that she had not had the Booster yet. They felt that they had pretty much recovered from it, but her cough persisted. Then yesterday her cough became bloody in nature. She continues to have bloody sputum today with her cough, but in smaller amounts than yesterday. She was admitted for Upper Respiratory Infection and hemoptysis. Kaitlynn takes Warfarin daily. The patient states that her INR has been slightly elevated recently with her last one being in the 4's. She has been continually coughing and is started coughing up blood-tinged sputum. Patient states that she has no shortness of breath, but does have a bit of tightness feeling in her chest feels as though she needs to cough something up. Patient reports symptoms have not improved by anything nor are they worsened by anything. Will treat patient to reduce coughing, improve respiratory/ventilation, and monitor for elevated INR. Plan to restart Coumadin dosing tomorrow, if hemoptysis has resolved then. Blood cultures pending, ordered sputum cx. Circuit Manager consult placed for tomorrow. Chief Complaint: Hemoptysis Hospital Course: CTA chest PE protocol today showed: Moderate size hiatal hernia. Severe emphysema.No evidence for pulmonary embolism.Patchy groundglass opacities of the right upper and lower lobes which may represent atelectasis or pneumonia.Emphysema. ipratropium albuterol azithromycin and Rocephin Mucinex She and her need COVID boosters holding Warfarin melissa
== END 2021-05-03 11:35 | disposition home or self-care (01) ==
LOC: ANHED 05-02 03:11 → ANH3MEDSUR 05-02 08:17
PROVIDERS: Admitting Provider Internal Medicine; Emergency Provider Emergency Medicine; PCP Internal Medicine; Visit Provider Nurse Practitioner
DX: R04.2 Hemoptysis (principal); J43.9 Emphysema, unspecified; T45.515A Adverse effect of anticoagulants, initial encounter; R58 Hemorrhage, not elsewhere classified; R07.89 Other chest pain; D72.829 Elevated white blood cell count, unspecified; D68.61 Antiphospholipid syndrome; E78.00 Pure hypercholesterolemia, unspecified; M81.0 Age-related osteoporosis without current pathological fracture; F41.8 Other specified anxiety disorders; F17.210 Nicotine dependence, cigarettes, uncomplicated; Z79.01 Long term (current) use of anticoagulants; Z20.822 Contact with and (suspected) exposure to COVID-19
CPT/HCPCS: 36415; 71045; 71275; 80053; 83605; 83880; 84484; 85014; 85018; 85025; 85027; 85610; 85730; 87040; 93005; 94640; 96365; 96374; 96375; 99285; A9270; C9803; G0378; J0456; J0696; Q9967; U0003; U0005

== ENCOUNTER → 2021-07-02 10:48 | Outpatient (CLI) | payer OTHER, SELFPAY ==
--- NOTE | ~2021-07-02 | US_ITS ---
EXAMINATION: US right upper quadrant EXAM DATE: 07/02/2021 11:12 INDICATION: Abdominal pain TECHNIQUE: Multiple grayscale and Doppler images of the abdomen right upper quadrant were obtained (vamsih y a technologist who performed the scan) and subsequently reviewed. There is no prior study for johanna oliveira. FINDINGS: Probable pancreatic body calcification. The pancreatic tail is not visualized. The liver has normal echogenicity and contour. There are no focal liver lesions identified. There is no evidence of int rahepatic biliary duct dilation. Portal venous flow was seen in the hepatopedal, normal direction an d has normal Doppler waveform. No right-sided hydronephrosis. Common bile duct measures 6 mm, which is normal. The gallbladder wall is normal in thickness, with ex pected amount of distention. No sonographic evidence of pericholecystic fluid. Possible small amoun t of gallbladder debris. No calcified cholelithiasis. Technologist performing exam reports patient d id not demonstrate sonographic Saunders's sign. Please note that this sign is less reliable in patient s who have received pain medication. IMPRESSION: 1. Possible gallbladder debris. 2. Probable pancreatic calcification, chronic pancreatitis. Reviewed, dictated and finalized at location A. OENGRAVING PROOFER APPRENTICE
== END ==
PROVIDERS: PCP Internal Medicine; Visit Provider Internal Medicine
DX: R10.9 Unspecified abdominal pain (principal)
CPT/HCPCS: 76705

== ENCOUNTER 2021-11-11 13:55 | Emergency (ER) | payer OTHER, SELFPAY ==
--- NOTE | ~2021-11-11 | XR_ITS ---
EXAMINATION: XR ankle RT min 3V DATE: 11/11/2021 14:39 INDICATION: Right ankle pain and swelling. TECHNIQUE: 4 views of right ankle were obtained. COMPARISON: None. FINDINGS: Bone alignment is normal. No fracture. Joint spaces are normal. There is an enthesophyte at plantar aspect of calcaneal tuberosity. There is ankle soft tissue swelling. IMPRESSION: 1. No fracture. Reviewed, dictated and finalized at location A. IMPRESSION: 1. No fracture.
[2021-11-11 14:02] VITALS: BP 139/73; PULSE 91; RESP 18; TEMP 36.6; O2SAT 98
--- NOTE | 2021-11-11 14:37 | ED.EXTPRO ---
HPI - Extremity Problem General Chief complaint: Extremity Problem,Nontraumatic Stated complaint: right ankle swollen Time Seen by Provider: 11/11/21 14:37 Source: patient and RN notes reviewed Mode of arrival: ambulatory Limitations: no limitations History of Present Illness HPI Narrative: 61-year-old female presents with concern for right ankle pain and swelling without injury or trauma. She reports 2 to 3-day history of symptoms. She denies warmth. She denies open skin or rash. She denies history of similar problems. She reports she was standing all day prior to the symptoms beginning. She denies intervention. MD Complaint: extremity swelling Related Data Home Medications Medication Instructions Recorded Confirmed duloxetine 60 mg capsule,delayed 60 mg PO DAILY 10/13/19 11/11/21 release warfarin 4 mg tablet 8 mg PO DAILY 11/05/20 11/11/21 cholecalciferol (vitamin D3) 1,250 1,250 mcg PO WEEKLY 01/06/21 11/11/21 mcg (50,000 unit) tablet alendronate 70 mg tablet 70 mg PO WEEKLY 07/15/21 11/11/21 pantoprazole 40 mg tablet,delayed 40 mg PO QAM 07/15/21 11/11/21 release magnesium 250 mg tablet 250 mg PO DAILY 07/22/21 11/11/21 simvastatin 20 mg tablet 20 mg PO DAILY 07/22/21 11/11/21 warfarin 1 mg tablet 1 mg PO DAILY 07/22/21 11/11/21 zinc acetate 50 mg (zinc) capsule 50 mg PO DAILY 07/22/21 11/11/21 (Galzin) Allergies Allergy/AdvReac Type Severity Reaction Status Date / Time Penicillins Allergy Difficulty Verified 11/11/21 14:01 Breathing Review of Systems Review of Systems: CONSTITUTIONAL: Denies malaise, chills, sweats, or fever. SKIN: Denies rash or itching, open skin, laceration, abrasion, redness, warmth MUSCULOSKELETAL: Reports right ankle pain and swelling NEUROLOGIC: Denies numbness, weakness All systems reviewed & are unremarkable except as noted in HPI and below PMFSH Past Medical History Medical History (Updated 11/11/21 @ 14:56 by Jazmyn Toure NP) Antiphospholipid syndrome Anxiety Depression Fibromyalgia High cholesterol Labial cyst 02/18/19 I&D Osteoporosis Screening mammogram, encounter for Surgical History Surgical History History of carpal tunnel surgery Carpal tunnel clean-out ~ 1989 History of partial hysterectomy 1986 total vaginal hysterectomy--uterina prolapse History of sinus surgery Family History Family History Mother Ovarian cancer Diabetes mellitus Sibling Hypertension Brother Hypoglycemia sister x2 Social History Social History (Updated 07/22/21 @ 14:42 by ULI Miguel) Smoking packs per day: 1 Smoking cigarettes per day: 20.0 Years smoked: 40 Smoking pack-years: 40.00 Smoking status: Current every day smoker Tobacco type: cigarettes Alcohol intake: never Substance use: never Substance use type: does not use Additional living arrangements comments: Lives with her Additional occupation/education comments: caregiver Gender identity (if verbalized by the patient): Female Sexual Orientation (if Verbalized by the Patient): Straight or Heterosexual Spiritual care concerns: No Comments At time of signature, agree with nursing past medical, surgical, social and family history. There is no relevant family history pertinent to the presenting complaint Exam Narrative: GENERAL: Well-appearing, well-nourished, and in no acute distress. HEAD: Normocephalic, atraumatic. EYES: PERRLA, conjunctivae clear NECK: Supple. CHEST: Speaks in full sentences. No respiratory distress. HEART: Regular rate and rhythm. Normal and equal peripheral pulses. EXTREMITIES: Right ankle, foot, digits have normal strength and sensation, normal range of motion. Moderate medial edema and tenderness noted to the ankle and into the foot without erythema or ecchymosis. 5/5 strength with ankle and digit flexi
== END 2021-11-11 15:03 | disposition home or self-care (01) ==
PROVIDERS: Emergency Provider Nurse Practitioner; PCP Internal Medicine
DX: M25.571 Pain in right ankle and joints of right foot (principal); M25.471 Effusion, right ankle; F17.210 Nicotine dependence, cigarettes, uncomplicated; M79.7 Fibromyalgia; E78.00 Pure hypercholesterolemia, unspecified; M81.0 Age-related osteoporosis without current pathological fracture; D68.61 Antiphospholipid syndrome; Z79.01 Long term (current) use of anticoagulants
CPT/HCPCS: 73610; 99213; G0463

== ENCOUNTER → 2022-02-26 08:42 | Outpatient (CLI) | payer OTHER, SELFPAY ==
--- NOTE | ~2022-02-26 | DEXA_ITS ---
Bone Density Report Name: NING LAGUNAS Age: 62 Sex: Female Ethnicity: White Date of : 1960 Indication: osteopenia; monitoring treatment; prior fracture; hysterectomy; postmenopausal Referring Provider: WAQAS, CHARLIE Gonzalez Study: Bone densitometry was performed. Exam Date: February 26, 2022 Accession number: [id number] Bone Density: Region BMD T-score Z-score Classification AP Spine (L1-L4) 0.802 -2.2 -0.7 Osteopenia Femoral Neck (Left) 0.575 -2.5 -1.1 Osteoporosis Total Hip (Left) 0.780 -1.3 -0.3 Osteopenia Femoral Neck (Right) 0.543 -2.8 -1.4 Osteoporosis Total Hip (Right) 0.738 -1.7 -0.6 Osteopenia Total Hip Mean 0.759 -1.5 -0.5 Osteopenia World Health Organization criteria for BMD impression classify patients as: Normal (T-score at or above -1.0), Osteopenia (T-score between -1.0 and -2.5), or Osteoporosis (T-score at or below -2.5). 10-year Fracture Risk: FRAX not reported because: Some T-score for Spine Total or Hip Total or Femoral Neck at or below -2.5 Prior hip or vertebral fracture Treated for osteopor Previous Exams: Region Exam Age BMD T-score BMD Change BMD Change Date g/cm2 vs Baseline vs Previous AP Spine(L1-L4) 02/26/2022 62 0.802 -2.2 -0.024* -0.023* 11/14/2019 59 0.825 -2.0 -0.001 -0.001 04/13/2018 58 0.827 -2.0 Total Hip(Left) 02/26/2022 62 0.780 -1.3 0.003 -0.009 11/14/2019 59 0.789 -1.3 0.012 0.012 04/13/2018 58 0.777 -1.4 Total Hip(Right) 02/26/2022 62 0.738 -1.7 -0.013 -0.032* 11/14/2019 59 0.770 -1.4 0.018 0.018 04/13/2018 58 0.752 -1.6 *Denotes significance at 95% confidence level, LSC for AP Spine = 0.022 g/cm2, LSC for Total Hip = 0.027 g/cm2 Clinical Information Provided by Patient: Have had a previous hip or vertebral fracture Has had a low trauma fracture Smokes Is being treated for osteoporosis Has used the following medications: Fosamax (i.e. alendronate), Vitamin D, Calcium, blood thinner, occasionally Has the following medical conditions: Hysterectomy Patient maximum height was 62.5 Menopause Age: 27 No regular weight bearing exercise Does not regularly consume dairy products Drinks caffeinated beverages Onset of menses at age 16 Number of children 2 Impression: The patient has established osteoporosis, based on the Right Femoral Neck T-score and the
== END ==
PROVIDERS: PCP Internal Medicine; Visit Provider Internal Medicine
DX: Z78.0 Asymptomatic menopausal state (principal); M85.88 Other specified disorders of bone density and structure, other site; M81.0 Age-related osteoporosis without current pathological fracture; M85.852 Other specified disorders of bone density and structure, left thigh; M85.851 Other specified disorders of bone density and structure, right thigh
CPT/HCPCS: 77080

== ENCOUNTER → 2022-11-19 10:41 | Outpatient (CLI) | payer OTHER, SELFPAY ==
--- NOTE | ~2022-11-19 | XR_ITS ---
EXAM: XR ankle RT min 3V DATE: 11/19/2022 10:55 HISTORY: RIGHT ANKLE PAIN . COMPARISON: 11/11/2021. FINDINGS: Normal mineralization. No fracture or dislocation. No lytic or blastic lesion. Mild degene rative change at the tibiotalar joint. Small ankle joint effusion. Plantar enthesopathy. No erosion o r periosteal change. Soft tissues within normal limits. IMPRESSION: Mild right ankle osteoarthritis. Small ankle joint effusion. Reviewed, dictated and finalized at location K.
== END ==
PROVIDERS: PCP Internal Medicine; Visit Provider Podiatrist Foot & Ankle Surgery
DX: M19.071 Primary osteoarthritis, right ankle and foot (principal); M25.471 Effusion, right ankle; M25.571 Pain in right ankle and joints of right foot
CPT/HCPCS: 73610

== ENCOUNTER 2023-12-19 12:31 | Outpatient (CLI) | payer OTHER, SELFPAY ==
--- NOTE | ~2023-12-19 | CT_ITS ---
CT Scan of the Chest without Contrast: Clinical Indication: Lung cancer screening, nicotine dependence COMPARISON: 05/02/2021 Technique: Contiguous sections were acquired throughout the chest without intravenous contrast. Dose reduction technique was used on this scan by utilizing automated exposure control and iterative recon struction technique. The dose-length product (DLP) was 90.29 mGy-cm. Findings: There is no evidence of any significant mediastinal, hilar or axillary lymphadenopathy. The mediastin al soft tissues appear normal. There is no evidence of pleural or pericardial effusion. The lungs are clear. No pulmonary nodules or infiltrates are noted. There is mild to moderate emphyse ma. Images through the upper abdomen reveal moderate hiatal hernia. Impression: Lung RADS 1: Negative. 12 month follow-up CT advised. Mild to moderate emphysema. Moderate hiatal hernia. Reviewed, dictated and finalized at [facility]. Impression: Lung RADS 1: Negative. 12 month follow-up CT advised. Mild to moderate emphysema. Moderate hiatal hernia.
== END 2023-12-19 12:32 ==
PROVIDERS: PCP Internal Medicine; Visit Provider Internal Medicine
DX: Z12.2 Encounter for screening for malignant neoplasm of respiratory organs (principal); Z87.891 Personal history of nicotine dependence; J43.9 Emphysema, unspecified; K44.9 Diaphragmatic hernia without obstruction or gangrene
CPT/HCPCS: 71271

== ENCOUNTER 2024-07-29 13:40 | Emergency (ER) | payer OTHER, SELFPAY ==
--- NOTE | ~2024-07-29 | XR_ITS ---
XR foot RT min 3V Ordering provider: Kindra Crowley APRN History: . pain plantar aspect dist MTs Rt foot x 1 day, no injury . Comparison: None. FINDINGS: BONES: No acute fracture or dislocation. Hallux valgus. JOINT SPACES: Normal. No tarsal coalition. SOFT TISSUES: Normal. Calcaneus spur. IMPRESSION: No acute osseous abnormality of the right foot. Reviewed, dictated and finalized at location A.
[2024-07-29 13:59] VITALS: BP 128/69; PULSE 85; RESP 16; TEMP 37.1; O2SAT 99
--- NOTE | 2024-07-29 14:31 | ED_ITS ---
HPI - Extremity Injury (Lower) General Chief Complaint: Extremity Injury, Lower Stated Complaint: Injured Foot Source: patient Mode of arrival: ambulatory Limitations: no limitations History of Present Illness HPI Narrative: 64 y/o female presented for c/o right foot pain. Onset yesterday. Denies known injury. Pain is to the ball of the foot and reports swelling. Pain mostly when walking. Has not taken anything for pain. Related Data Home Medications ?Medication ?Instructions ?Recorded ?Confirmed ?Last Taken ?Type duloxetine 60 mg capsule,delayed 60 mg PO DAILY 10/13/19 07/29/24 Unknown History release warfarin 4 mg tablet 8 mg PO DAILY 11/05/20 07/29/24 Unknown History alendronate 70 mg tablet 70 mg PO WEEKLY 07/15/21 07/29/24 Unknown History simvastatin 20 mg tablet 20 mg PO DAILY 07/22/21 07/29/24 Unknown History cholecalciferol (vitamin D3) 25 25 mcg PO DAILY 08/01/23 07/29/24 Unknown History mcg (1,000 unit) capsule fluticasone propionate 50 1 spray intranasal DAILY 08/01/23 07/29/24 Unknown History mcg/actuation nasal spray,suspension (Flonase Allergy Relief) metoprolol succinate 25 mg 12.5 mg PO DAILY 08/01/23 07/29/24 Unknown History tablet,extended release 24 hr BYMOUTH DAILY 07/29/24 Unknown History Allergies Allergy/AdvReac Type Severity Reaction Status Date / Time Penicillins Allergy Severe Difficulty Verified 07/29/24 13:54 Breathing Review of Systems Review of Systems: CONSTITUTIONAL: Denies body aches, fever, chills CARDIOVASCULAR: Denies chest pain, palpitations, or edema. RESPIRATORY: Denies cough or dyspnea. GASTROINTESTINAL: Denies abdominal pain, nausea, vomiting, or diarrhea. SKIN: Denies rash, itching, or wounds. MUSCULOSKELETAL:reports right foot pain NEUROLOGIC: Denies numbness, tingling, or weakness. All systems reviewed & are unremarkable except as noted in HPI and below PMFSH Past Medical History Medical History Antiphospholipid syndrome Anxiety Depression Fibromyalgia High cholesterol Labial cyst 02/18/19 I&D Osteoporosis Screening mammogram, encounter for Surgical History Surgical History History of carpal tunnel surgery Carpal tunnel clean-out ~ 1989 History of partial hysterectomy 1986 total vaginal hysterectomy--uterina prolapse History of sinus surgery Family History Family History Mother Ovarian cancer Diabetes mellitus Sibling Hypertension Brother Hypoglycemia sister x2 Social History Social History (Updated 08/01/23 @ 14:08 by [facility] Miguel) Smoking packs per day: 1 Smoking cigarettes per day: 20.0 Years smoked: 40 Smoking pack-years: 40.00 Smoking status: Current every day smoker Tobacco type: cigarettes Second hand tobacco smoke exposure: Yes Alcohol intake: never Substance use: current Substance use type: marijuana Other substance usage details: every now and then Do You Feel Safe in your Home?: Yes Lack of Transportation: No Lack of Food: Never True Current Housing: I Have Housing Concerned About Future Housing: No Difficulty Paying Gas/Electric Bills: No Difficulty Paying for Meds: No Currently Unemployed: No Education: High School Diploma/GED Difficulty w/ Childcare or Family Care: No Living arrangements: other Additional living arrangements comments: Lives with her 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 Please see nursing chart for further information. There is no relevant family history pertinent to the presenting complaint Exam Narrative: GENERAL: Well-appearing CHEST: Speaks in full sentences. No respiratory distress. HEART: Regular rate and rhythm. Normal and equal peripheral pulses. EXTREMITIES: right foot has normal strength and sensation, normal range of motion. Tender with palpation over plantar MTP area. Mild callous formation. No swelling or ecchymosis, No open wounds, or obvious deformity; alignment normal, pulse palpable and equal bilaterally, skin warm, dry, pink. Capillary refill less than 3 seconds. SKIN: Warm, dry NEURO: Alert and oriented x3. PSYCH: Normal mood and affect Course Course Emergency Course: Patient is aware of diagnosis, understands and agrees to treatment plan. Anticipatory guidance given. Patient agrees to follow-up as directed and is aware of reasons to seek care at the emergency department. Portions of this record may have been created with voice recognition software Level of Care: Express Care Visit Vital Signs Vital signs: Vital Signs Temperature 98.7 F 07/29/24 13:59 Pulse Rate 85 07/29/24 13:59 Respiratory Rate 16 07/29/24 13:59 Blood Pressure 128/69 07/29/24 13:59 Pulse Oximetry 99 07/29/24 13:59 Temperature 98.7 F 07/29/24 13:59 Pulse Rate 85 07/29/24 13:59 Respiratory Rate 16 07/29/24 13:59 Blood Pressure 128/69 07/29/24 13:59 Pulse Oximetry 99 07/29/24 13:59 Reviewed MDM - Extremity Injury (Lower) MDM Narrative Medical decision making narrative: Discussed physical exam findings and xray. Offered DAHIANA and post op shoe. Pt has a assistant store leader. Advised supportive measures and signs/symptoms to go to the ER. Pt is appropriate for outpt treatment and f/u. Differential Diagnosis Differential diagnosis: Likely other (contusion, Plantar fasciitis, heel spur, foot strain/sprain, metatarsal fracture, metatarsalgia, howell's neuroma) Imaging Data Radiologist's impression: Patient: Kaitlynn Pinedo : 1960 MR#: [id number] Age: 64 Acct:[id number] Loc: [facility] ADM Date: 07/29/24Attending Dr: Ordering Physician: Kindra Crowley APRN Date of Service: 07/29/24 Procedure(s): XR foot RT min 3V Accession Number(s): [id number] cc: Kindra Crowley APRN; CLINIC PHYSICIAN DIRECTOR PHYSICIAN~ XR foot RT min 3V Ordering provider: Kindra Crowley APRN History: . pain plantar aspect dist MTs Rt foot x 1 day, no injury . Comparison: None. FINDINGS: BONES: No acute fracture or dislocation. Hallux valgus. JOINT SPACES: Normal. No tarsal coalition. SOFT TISSUES: Normal. Calcaneus spur. IMPRESSION: No acute osseous abnormality of the right foot. Discharge Plan Discharge Clinical Impression: Acute foot pain Patient Disposition: Home Condition: Stable Instructions: Antibiotic Form, Foot Sprain (ED) Additional Instructions: Rest; avoid excessive walking elevate the right leg; bear weight as tolerated Apply ice 15-20 minute intervals several times a day Keep it wrapped with DAHIANA and use the shoe when walking Tylenol 1000mg every 8 hours as needed Follow up with your primary care provider and assistant store leader Go to the ER for worsening symptoms or concerns Patient Language: Albanian Prescriptions: No Action BYMOUTH DAILY duloxetine 60 mg capsule,delayed release(DR/EC) 60 mg PO DAILY warfarin 4 mg Tablet 8 mg PO DAILY simvastatin 20 mg tablet 20 mg PO DAILY alendronate 70 mg tablet 70 mg PO WEEKLY fluticasone propionate [Flonase Allergy Relief] 50 mcg/actuation spray,suspension 1 spray intranasal DAILY Rx Instructions: administer into each nostril metoprolol succinate 25 mg tablet extended release 24 hr 12.5 mg PO DAILY cholecalciferol (vitamin D3) 25 mcg (1,000 unit) capsule 25 mcg PO DAILY Follow-up/Referrals: PHYSICIAN,CLINIC PHYSICIAN DIRECTOR [Primary Care Provider] - Time of Disposition: 14:48
== END 2024-07-29 14:52 | disposition home or self-care (01) ==
PROVIDERS: Emergency Provider Nurse Practitioner Family
DX: M79.671 Pain in right foot (principal); F17.210 Nicotine dependence, cigarettes, uncomplicated; F12.90 Cannabis use, unspecified, uncomplicated; E78.00 Pure hypercholesterolemia, unspecified; M79.7 Fibromyalgia; M81.0 Age-related osteoporosis without current pathological fracture; D68.61 Antiphospholipid syndrome; Z90.711 Acquired absence of uterus with remaining cervical stump; Z79.01 Long term (current) use of anticoagulants
CPT/HCPCS: 73630; 99213; G0463

== ENCOUNTER 2025-01-01 09:06 | Outpatient (CLI) | payer OTHER, SELFPAY ==
--- NOTE | ~2025-01-01 | CT_ITS ---
EXAMINATION:CT lung screening DATE: 01/01/2025 09:21 INDICATION: Personal history of nicotine dependence. Current smoker. TECHNIQUE: Computed tomography (CT) of the chest was performed without intravenous contrast. Automated exposure control and iterative reconstruction technique were employed. The dose-length product (DLP) was 78.73 mGy-cm. COMPARISON: Chest CT 12/19/2023 FINDINGS: There is mild emphysema. There is a 3 mm nodule in left upper lobe, likely benign. A calcified right lung nodule is consistent with old granulomatous disease. There is mild atelectasis bilaterally. No pleural effusion. The heart size is normal. No pericardial effusion. There is a moderate-sized sliding hiatal hernia. There is a 10 mm cyst in right kidney. There is mild thoracic spondylosis. IMPRESSION: 1. Lung-RADS category 2S: Benign appearance or behavior. Continue annual screening with noncontrast low-dose chest CT in 12 months. 2. Moderate-sized sliding hiatal hernia. Reviewed, dictated and finalized at location E. IMPRESSION: 1. Lung-RADS category 2S: Benign appearance or behavior. Continue annual screen ing with noncontrast low-dose chest CT in 12 months. 2. Moderate-sized sliding hiatal hernia.
== END 2025-01-01 09:07 | disposition home or self-care (01) ==
LOC: MICIMG 09:07
PROVIDERS: PCP Internal Medicine; Visit Provider Internal Medicine
DX: Z12.2 Encounter for screening for malignant neoplasm of respiratory organs (principal); F17.210 Nicotine dependence, cigarettes, uncomplicated; K44.9 Diaphragmatic hernia without obstruction or gangrene
CPT/HCPCS: 71271